=== PATIENT | female | born 1975 | race African-American/Black ===

== ENCOUNTER 2016-11-23 15:48 | Observation (INO) | payer SELFPAY ==
[~2016-11-23] VITALS: Ht 162.6 cm; Wt 81.6 kg
[2016-11-23] MEDS ORDERED: FOLI-43 PO (16:28)
[2016-11-23] MEDS ORDERED: FERR-63 PO (16:28)
== END 2016-11-23 17:00 | disposition home or self-care (01) ==
LOC: L&D 15:48
PROVIDERS: ADMIT Specialist; ATTEND Specialist
DX: O26.892 Other specified pregnancy related conditions, second trimester (principal); R10.13 Epigastric pain; O09.522 Supervision of elderly multigravida, second trimester; Z3A.19 19 weeks gestation of pregnancy
CPT/HCPCS: 99281; G0378